=== PATIENT | female | born 1995 | race Caucasian/White ===

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

== ENCOUNTER 2017-04-27 14:14 | Emergency (ER) | payer OTHER ==
[2017-04-27 15:29] VITALS: BP 119/74
--- NOTE | 2017-04-27 15:44 | UC ---
Complaint Female HPI - HPI Summary HPI Summary: Pt presents with c/o of urinary symptoms of dysuria, frequency and urgency x 2 days. pt reports having unprotected heterosexual intercourse on friday night. Pt is concerned about STD's but denies vaginal discomfort, discharge, or pain. - History Of Current Complaint Chief Complaint: UCGU Stated Complaint: URINARY Time Seen by Provider: 04/27/17 15:28 Hx Obtained From: Patient Hx Last Menstrual Period: unknown ?: No Onset/Duration: Sudden Onset, Lasting Days, Still Present Timing: Constant Severity Initially: Mild Severity Currently: Mild Character: Dull, Burning Aggravating Factor(s): Urination Alleviating Factor(s): Nothing Associated Signs And Symptoms: Positive: Negative - Risk Factors Ectopic Risk Factor: Negative Ovarian Torsion Risk Factor: Reproductive Age - Allergies/Home Medications Allergies/Adverse Reactions: Allergies Allergy/AdvReac Type Severity Reaction Status Date / Time No Known Allergies Allergy Verified 04/27/17 15:25 PMH/Surg Hx/FS Hx/Imm Hx Previously Healthy: Yes - Surgical History Surgical History: Yes Surgery Procedure, Year, and Place: - Family History Known Family History: Negative: Hypertension, Respiratory Disease Family History: denies family history of DM, HTN - Social History Occupation: Student - [employer] Lives: Dormitory/Roommates Alcohol Use: Weekly Substance Use Type: None Smoking Status (MU): Never Smoked Tobacco Have You Smoked in the Last Year: No Review of Systems Constitutional: Negative Skin: Negative Eyes: Negative ENT: Negative Respiratory: Negative Cardiovascular: Negative Gastrointestinal: Negative Genitourinary: Dysuria, Frequency, Urgency Motor: Negative Neurovascular: Negative Musculoskeletal: Negative Neurological: Negative Psychological: Negative Is Patient Immunocompromised?: No All Other Systems Reviewed And Are Negative: Yes Physical Exam Triage Information Reviewed: Yes Appearance: Well-Appearing Vital Signs: Initial Vital Signs Temp 98.2 F 04/27/17 15:25 Pulse 97 04/27/17 15:25 Resp 16 04/27/17 15:25 BP 119/74 04/27/17 15:25 Vital Signs Reviewed: Yes Eye Exam: Normal ENT Exam: Normal Dental Exam: Normal Neck exam: Normal Respiratory Exam: Normal Cardiovascular Exam: Normal Abdominal Exam: Normal Musculoskeletal Exam: Normal Neurological Exam: Normal Psychological Exam: Normal Skin Exam: Normal Complaint Female Dx - Differential Dx/Diagnosis Differential Diagnosis/HQI/PQRI: Sexually Transmitted Disease, Urinary Tract Infection Provider Diagnoses: UTI. possible STD exposure Discharge - Discharge Plan Condition: Stable Disposition: HOME Prescriptions: Cephalexin CAP* [Keflex 500 CAP*] 500 mg PO Q12H #10 cap Phenazopyridine TAB* [Pyridium 100 mg TAB*] 100 mg PO TID #6 tab Patient Education Materials: Safe Sex (ED), Urinary Tract Infection in Women ( ED) Referrals: [facility] [Outside] - If Needed Non Staff,Doctor [Primary Care Provider] - If Needed
--- NOTE | 2017-04-30 07:25 | ED ---
Progress - Progress Note Progress Note: GC/CH both negative no change Tanner 04/30/17 Course/Dx - Diagnoses Provider Diagnoses: UTI (urinary tract infection)
== END 2017-04-27 16:11 | disposition home or self-care (01) ==
LOC: UCCORT 14:14
DX: N39.0 Urinary tract infection, site not specified (principal)
CPT/HCPCS: 81003; 87077; 87086; 87491; 87591; 99212; G0463

== ENCOUNTER 2017-04-30 12:30 | Emergency (ER) | payer OTHER ==
[2017-04-30 14:32] VITALS: BP 115/73
--- NOTE | 2017-04-30 14:59 | UC ---
Complaint Female HPI - HPI Summary HPI Summary: 22F presents with vaginal irritation and pain for 4 days. She was treated for here for a uti which she was sensitive to with keflex. She states since starting the antibiotic the irritation has gotten worst. shee denies any abdominal pain. She denies any dysuria or flank pain. She denies any fever. She denies any n/v/d. She denies any vaginal discharge. - History Of Current Complaint Hx Last Menstrual Period: unknown, on oral contraceptive <Angelia Nicolas - Last Filed: 04/30/17 15:01> <Edelmira Quiñones - Last Filed: 04/30/17 19:07> - History Of Current Complaint Chief Complaint: UCGU Stated Complaint: URINARY Time Seen by Provider: 04/30/17 14:33 - Allergies/Home Medications Allergies/Adverse Reactions: Allergies Allergy/AdvReac Type Severity Reaction Status Date / Time No Known Allergies Allergy Verified 04/30/17 14:32 PMH/Surg Hx/FS Hx/Imm Hx Endocrine History: Other Other Endocrine History: no DM Cardiovascular History: Other Other Cardiovascular History: no HTN - Surgical History Surgical History: Yes Surgery Procedure, Year, and Place: - Family History Known Family History: Negative: Hypertension, Respiratory Disease Family History: denies family history of DM, HTN - Social History Alcohol Use: Weekly Substance Use Type: None Smoking Status (MU): Never Smoked Tobacco Have You Smoked in the Last Year: No <Angelia Nicolas - Last Filed: 04/30/17 15:01> Review of Systems Constitutional: Negative Respiratory: Negative Cardiovascular: Negative Gastrointestinal: Negative Genitourinary: Vaginal/Penile Itching All Other Systems Reviewed And Are Negative: Yes <Angelia Nicolas - Last Filed: 04/30/17 15:01> Physical Exam Triage Information Reviewed: Yes Appearance: Well-Appearing Vital Signs: Initial Vital Signs Temp 98.5 F 04/30/17 14:28 Pulse 86 04/30/17 14:28 Resp 14 04/30/17 14:28 BP 115/73 04/30/17 14:28 Pulse Ox 99 04/30/17 14:28 Vital Signs Reviewed: Yes Eye Exam: Normal Respiratory: Positive: Lungs clear, Normal breath sounds Cardiovascular: Positive: RRR Abdomen Description: Positive: Nontender, Soft, Other: - white curd like discharge on pelvic exam, no CMT Bowel Sounds: Positive: Present Musculoskeletal Exam: Normal Neurological Exam: Normal Psychological Exam: Normal <Angelia Nicolas - Last Filed: 04/30/17 15:01> Vital Signs: Initial Vital Signs Temp 98.5 F 04/30/17 14:28 Pulse 86 04/30/17 14:28 Resp 14 04/30/17 14:28 BP 115/73 04/30/17 14:28 Pulse Ox 99 04/30/17 14:28 <Edelmira Quiñones - Last Filed: 04/30/17 19:07> Complaint Female Dx - Course Course Of Treatment: 22F presents with vaginal irritation and pain for 4 days. She was treated for here for a uti which she was sensitive to with keflex. She states since starting the antibiotic the irritation has gotten worst. shee denies any abdominal pain. She denies any dysuria or flank pain. She denies any fever. She denies any n/v/d. She denies any vaginal discharge. white curd like discharge on exam. no CMT. symptoms could be BV but due to getting worst with keflex will treat with diflucan. patient understand and agrees with plan. - Differential Dx/Diagnosis Differential Diagnosis/HQI/PQRI: Sexually Transmitted Disease, Other - BV, candidiasis Provider Diagnoses: candidiasis <Angelia Nicolas - Last Filed: 04/30/17 15:01> Discharge <Angelia Nicolas - Last Filed: 04/30/17 15:01> <Edelmira Quiñones - Last Filed: 04/30/17 19:07> - Discharge Plan Condition: Good Disposition: HOME Prescriptions: Fluconazole [Diflucan 150 MG (NF)] 150 mg PO ONCE #1 tab Patient Education Materials: Vulvovaginal Candidiasis (ED) Forms: *School Release Referrals: Non Staff,Doctor [Primary Care Provider] - Additional Instructions: Will treat for candidiasis one time dose, If cultures growth something different will call Return to ED if develop any new or worsening symptoms Attestation Statement User Type: Provider - I was available for consult. This patient was seen by the HELEN. The patient was not presented to, seen by, or examined by me. -Tanner <Edelmira Quiñones - Last Filed: 04/30/17 19:07>
[2017-04-30 18:42] LABS: Trichomonas Source Affirm Vaginal Swab (Negative)
--- NOTE | 2017-05-02 07:29 | UC ---
Progress - Progress Note Progress Note: noted + garnarella, + sonali from 04/30/17. Has script for diflucan. Rx e- scribed to pharmacy of record for metronidazole ([facility]). RN to call pt.
== END 2017-04-30 15:05 | disposition home or self-care (01) ==
LOC: UCCORT 12:30
DX: B37.3 Candidiasis of vulva and vagina (principal); B96.89 Other specified bacterial agents as the cause of diseases classified elsewhere
CPT/HCPCS: 87480; 87491; 87510; 87591; 87660; 87661; 99212; G0463

== ENCOUNTER 2018-05-12 11:40 | Emergency (ER) | payer OTHER ==
[2018-05-12 12:06] VITALS: BP 122/76
--- NOTE | 2018-05-12 12:23 | UC ---
Complaint Female HPI - HPI Summary HPI Summary: 23-year-old female presents with onset of dysuria, frequency, urgency, nocturia last night. States she had similar symptoms approximately one week ago which she self treated with fluids and [id number] Azo in symptoms resolved after a few days. Denies fever, chills, abdominal pain, back or flank pain, nausea, vomiting, or vaginal discharge. - History Of Current Complaint Chief Complaint: UCGU Stated Complaint: URINARY COMPLAINT Time Seen by Provider: 05/12/18 11:57 Hx Obtained From: Patient Hx Last Menstrual Period: "I don't even know. I don't really get them with my control." ?: No Onset/Duration: Sudden Onset - Last night with similar symptoms 1 week ago that resolved with fluids and Azo Timing: Intermittent Pain Intensity: 0 Character: Burning Aggravating Factor(s): Urination - Allergies/Home Medications Allergies/Adverse Reactions: Allergies Allergy/AdvReac Type Severity Reaction Status Date / Time No Known Allergies Allergy Verified 05/12/18 11:59 Home Medications: Home Medications Ibuprofen TAB* [Advil TAB*] 400 mg PO Q6H PRN 05/12/18 [History Confirmed ] Norethindrone AC-Eth Estradiol [07/26] 1 tab PO DAILY 05/12/18 [History Confirmed 05/12/18] PMH/Surg Hx/FS Hx/Imm Hx Previously Healthy: Yes - Denies significant PMH - Surgical History Surgical History: Yes Surgery Procedure, Year, and Place: Appendectomy, 2014, [place] - Family History Family History: Noncontributory - Social History Occupation: Student Lives: Dormitory/Roommates Alcohol Use: Occasionally Substance Use Type: None Smoking Status (MU): Never Smoked Tobacco Have You Smoked in the Last Year: No Review of Systems Constitutional: Negative Respiratory: Negative Cardiovascular: Negative Gastrointestinal: Negative Genitourinary: Dysuria, Frequency, Urgency Is Patient Immunocompromised?: No All Other Systems Reviewed And Are Negative: Yes Physical Exam Triage Information Reviewed: Yes Appearance: Well-Appearing, No Pain Distress, Well-Nourished Vital Signs: Initial Vital Signs Temp 98.1 F 05/12/18 11:56 Pulse 70 05/12/18 11:56 Resp 16 05/12/18 11:56 BP 122/76 05/12/18 11:56 Pulse Ox 100 11/06/18 11:56 Vital Signs Reviewed: Yes Respiratory: Positive: Lungs clear, Normal breath sounds, No respiratory distress Cardiovascular: Positive: RRR, No Murmur Abdomen Description: Positive: Nontender, No Organomegaly, Soft. Negative: CVA Tenderness (R), CVA Tenderness (L), Distended, Guarding Bowel Sounds: Positive: Present Neurological: Positive: Alert Skin Exam: Normal Diagnostics - Laboratory Diagnostic Studies Completed/Ordered: POC UA 2+ leukocytes. Urine culture pending. Complaint Female Dx - Course Course Of Treatment: 23 year old female with onset of UTI symptoms last night. Reports similar symptoms 1 week ago the subsided with self-treatment using fluids and Azo. Afebrile. Exam unremarkable. POC UA 2+ leukocytes. Will treat with 5 day course of Bactrim DS BID and pyridium 1 tab TID x 2 days. Warning symptoms reveiwed. Verbalizes understanding and agrees with POC. - Differential Dx/Diagnosis Provider Diagnoses: UTI Discharge - Sign-Out/Discharge Documenting (check all that apply): Patient Departure All imaging exams completed and their final reports reviewed: No Studies - Discharge Plan Condition: Stable Disposition: HOME Prescriptions: Phenazopyridine TAB* [Pyridium 100 mg TAB*] 100 mg PO TID #6 tab Sulfamethox/Trimethoprim DS* [Bactrim DS 800/160 TAB*] 1 tab PO BID #10 tab Patient Education Materials: Urinary Tract Infection in Women (ED) Referrals: No Primary Care Phys,NOPCP [Primary Care Provider] - Additional Instructions: Your urine test in the clinic today was suggestive of a urinary tract infection. We will send the urine for culture to see what bacteria grow out and to make sure that the antibiotic you were prescribed is effective against the bacteria. It typically takes 48-72 hours to get these results. Start Bactrim DS 1 tab twice a day for 5 days. Take Pyridium 1 tablet every 8 hours for the next 2 days to help with the discomfort. Be aware that this medication will cause her urine to turn and orange color. Make sure you're drinking plenty of fluids. Make sure you are using the bathroom frequently and emptying her bladder completely each time. Wipe from front to back to avoid introducing bacteria into the urinary tract. You should urinate immediately after any sexual intercourse. Follow-up with your primary care provider or at [facility] if your symptoms persist. Seek immediate medical attention in the emergency room if you develop a fever greater than 100.5 F, have severe abdominal pain, persistent vomiting, or any worsening of symptoms. - Billing Disposition and Condition Condition: STABLE Disposition: Home
--- NOTE | 2018-05-15 07:08 | UC ---
- Progress Note Progress Note: + E. coli sensitive to Bactrim no change ljj 05/15/2018 Discharge - Sign-Out/Discharge Documenting (check all that apply): Post-Discharge Follow Up All imaging exams completed and their final reports reviewed: No Studies - Discharge Plan Condition: Stable Disposition: HOME Prescriptions: Phenazopyridine TAB* [Pyridium 100 mg TAB*] 100 mg PO TID #6 tab Sulfamethox/Trimethoprim DS* [Bactrim DS 800/160 TAB*] 1 tab PO BID #10 tab Patient Education Materials: Urinary Tract Infection in Women (ED) Referrals: No Primary Care Phys,NOPCP [Primary Care Provider] - Additional Instructions: Your urine test in the clinic today was suggestive of a urinary tract infection. We will send the urine for culture to see what bacteria grow out and to make sure that the antibiotic you were prescribed is effective against the bacteria. It typically takes 48-72 hours to get these results. Start Bactrim DS 1 tab twice a day for 5 days. Take Pyridium 1 tablet every 8 hours for the next 2 days to help with the discomfort. Be aware that this medication will cause her urine to turn and orange color. Make sure you're drinking plenty of fluids. Make sure you are using the bathroom frequently and emptying her bladder completely each time. Wipe from front to back to avoid introducing bacteria into the urinary tract. You should urinate immediately after any sexual intercourse. Follow-up with your primary care provider or at the [facility] if your symptoms persist. Seek immediate medical attention in the emergency room if you develop a fever greater than 100.5 F, have severe abdominal pain, persistent vomiting, or any worsening of symptoms. - Billing Disposition and Condition Condition: STABLE Disposition: Home
== END 2018-05-12 12:31 | disposition home or self-care (01) ==
LOC: UCCORT 11:40
DX: N39.0 Urinary tract infection, site not specified (principal)
CPT/HCPCS: 81003; 87077; 87086; 87186; 99212; G0463